=== PATIENT | female | born 1955 | race Caucasian/White ===

== ENCOUNTER 2019-08-14 11:15 | Emergency (ER) | payer OTHER ==
[2019-08-14] MEDS ORDERED: Lidocaine 1% 20 ML MDV ONE (11:40)
[2019-08-14] MEDS ORDERED: Bacitracin 1 PK ONE (12:00)
== END 2019-08-14 12:16 | disposition home or self-care (01) ==
LOC: MADERS 11:15
DX: S00.05XA Superficial foreign body of scalp, initial encounter (principal); I10 Essential (primary) hypertension; F41.9 Anxiety disorder, unspecified; W45.8XXA Other foreign body or object entering through skin, initial encounter
CPT/HCPCS: 99283; J2001